=== PATIENT | female | born 1975 | race Caucasian/White ===

== ENCOUNTER 2022-06-16 20:33 | Emergency (ER) | payer MEDICARE, OTHER ==
[~2022-06-16] VITALS: Ht 165.1 cm; Wt 67.1 kg
--- NOTE | 2022-06-16 21:07 | NUR ---
Dr Conrad at bedside MSE in progress
--- NOTE | 2022-06-16 21:15 | NUR ---
patient walked to ER with steady gait, NAD noted
[2022-06-16] MEDS ORDERED: AMOX-430 PO (21:24)
[2022-06-16] MEDS ORDERED: AMOXICILLIN-CLAVUL 875-125MG TABLET ONE (21:26)
[2022-06-16] MEDS ORDERED: AMOXICILLIN-CLAVUL 875-125MG TABLET PO ONE (21:30)
[2022-06-16 21:31] VITALS: BP 128/73
--- NOTE | 2022-06-16 21:31 | NUR ---
Patient discharged to home in stable condition. Written and verbal after care instructions given. Patient verbalizes understanding of instructions. Stressed follow up or return to ER for worsening s/s. patient is a/ox4,NAD noted, patient is able to walk with steady gait. accompanied by her friend
== END 2022-06-16 21:32 | disposition home or self-care (01) ==
LOC: ER 21:03
DX: S41.131A Puncture wound without foreign body of right upper arm, initial encounter (principal); S41.112A Laceration without foreign body of left upper arm, initial encounter; W55.01XA Bitten by cat, initial encounter; Y92.89 Other specified places as the place of occurrence of the external cause; J45.909 Unspecified asthma, uncomplicated
CPT/HCPCS: A4663

== ENCOUNTER 2024-04-07 11:17 | Emergency (ER) | payer MEDICARE, OTHER ==
[~2024-04-07] VITALS: Ht 160 cm; Wt 67.1 kg
[~2024-04-07 11:17] MED LIST: AMOX-430 PO
[2024-04-07] MEDS ORDERED: ACETAMINOPHEN 500 MG TABLET ONE (11:42)
[2024-04-07] MEDS ORDERED: AMOXICILLIN-CLAVUL 875-125MG TABLET ONE (11:43)
[2024-04-07] MEDS ORDERED: TDAP DIPH,PERTUSS,TET VAC/PF 0.5 ML DISP.SYRIN IM ONE (11:43)
[2024-04-07] MEDS ORDERED: IBUPROFEN 600 MG TABLET ONE (11:43)
[2024-04-07] MEDS ORDERED: IBUP-1490 PO (11:46)
[2024-04-07] MEDS ORDERED: AMOX-430 PO (11:46)
[2024-04-07] MEDS: IBUPROFEN 600 MG TABLET PO ONE (11:51)
[2024-04-07] MEDS: TDAP DIPH,PERTUSS,TET VAC/PF 0.5 ML DISP.SYRIN IM ONE (11:51)
[2024-04-07] MEDS: AMOXICILLIN-CLAVUL 875-125MG TABLET PO ONE (11:51)
[2024-04-07] MEDS: ACETAMINOPHEN 500 MG TABLET PO ONE (11:51)
[2024-04-07 13:08] VITALS: BP 124/74
== END 2024-04-07 13:09 | disposition home or self-care (01) ==
LOC: ER 11:17
DX: S51.831A Puncture wound without foreign body of right forearm, initial encounter (principal); Z23 Encounter for immunization; Z79.899 Other long term (current) drug therapy; Z88.7 Allergy status to serum and vaccine; W55.01XA Bitten by cat, initial encounter; Y93.89 Activity, other specified; Y92.89 Other specified places as the place of occurrence of the external cause; Y99.8 Other external cause status
CPT/HCPCS: 73090; 90715; A4606; A4663; A9150